=== PATIENT | female | born 1995 | race Two or more races ===

== ENCOUNTER → 2022-01-18 | Emergency (ER) | payer MEDICAID, OTHER ==
[~2022-01-18] VITALS: Ht 170.2 cm; Wt 90.7 kg
[2022-01-18 11:23] LABS: Basophils # (auto) 0.1 10 ^3/uL (0-0.2); Basophils % (auto) 0.8 % (0.0-2.0); Eosinophils # (auto) 0.3 10 ^3/uL (0-0.8); Eosinophils % (auto) 2.5 % (0.0-7.0); Hemoglobin 13.9 g/dL (12.2-16.2); Lymphocytes # (auto) 2.4 10 ^3/uL (0.4-5.4); Lymphocytes % (auto) 22.6 % (10.0-50.0); Mean Corpuscular Hemoglobin 29.6 pg (28.0-32.0); Mean Corpuscular Hgb Conc. 33.1 g/dL (32.0-36.0); Mean Corpuscular Volume 89.5 fL (80.0-100.0); Monocytes # (auto) 0.8 10 ^3/uL (0-1.3); Monocytes % (auto) 7.6 % (0.0-12.0); Neutrophils # (auto) 7.1 10 ^3/uL (1.6-8.6); Neutrophils % (auto) 66.5 % (37.0-80.0); Nucleated Red Blood Cells % 0.1 %; Red Blood Cells 4.69 10^6/uL (4.0-5.20); Red Cell Distribution Width 13.9 % (11.8-14.3); White Blood Cell 10.7 10^3/uL (4.4-10.8)
[2022-01-18 12:15] LABS: Urine Bacteria NONE SEEN /hpf (None Seen); Urine Blood 3+ /uL (Negative); Urine Budding Yeast OCCASIONAL /hpf (None Seen); Urine Mucus FEW (None Seen); Urine Specific Gravity 1.021 (1.001-1.035); Urine WBC 5 /hpf (0 - 5)
[2022-01-18 14:25] VITALS: BP 120/81
== END | disposition home or self-care (01) ==
LOC: ER 10:30
DX: O20.0 Threatened abortion (principal); Z86.2 Personal history of diseases of the blood and blood-forming organs and certain disorders involving the immune mechanism; Z91.040 Latex allergy status; Z3A.01 Less than 8 weeks gestation of pregnancy
CPT/HCPCS: 36415; 76801; 76817; 81001; 84702; 85025

== ENCOUNTER 2022-07-06 18:22 | Emergency (ER) | payer MEDICAID ==
[~2022-07-06] VITALS: Ht 167.6 cm; Wt 87.7 kg
[2022-07-06 19:52] VITALS: BP 128/74
== END 2022-07-06 19:56 | disposition home or self-care (01) ==
LOC: ER 18:22
DX: O20.0 Threatened abortion (principal); Z86.2 Personal history of diseases of the blood and blood-forming organs and certain disorders involving the immune mechanism; Z91.040 Latex allergy status; Z3A.11 11 weeks gestation of pregnancy

== ENCOUNTER 2022-07-29 12:32 | Emergency (ER) | payer MEDICAID ==
[~2022-07-29] VITALS: Ht 165.1 cm; Wt 89.1 kg
[2022-07-29 13:47] LABS: Basophils # (auto) 0.1 10 ^3/uL (0-0.2); Basophils % (auto) 0.5 % (0.0-2.0); Eosinophils # (auto) 0.1 10 ^3/uL (0-0.8); Eosinophils % (auto) 1.3 % (0.0-7.0); Hematocrit 40.1 % (36.0-46.0); Hemoglobin 13.6 g/dL (12.2-16.2); Lymphocytes # (auto) 1.7 10 ^3/uL (0.4-5.4); Lymphocytes % (auto) 16.2 % (10.0-50.0); Mean Corpuscular Hemoglobin 29.9 pg (28.0-32.0); Mean Corpuscular Hgb Conc. 33.9 g/dL (32.0-36.0); Mean Corpuscular Volume 88.3 fL (80.0-100.0); Monocytes # (auto) 0.5 10 ^3/uL (0-1.3); Monocytes % (auto) 4.6 % (0.0-12.0); Neutrophils # (auto) 8.3 10 ^3/uL (1.6-8.6); Neutrophils % (auto) 77.4 % (37.0-80.0); Red Blood Cells 4.54 10^6/uL (4.0-5.20); Red Cell Distribution Width 14.4 % (11.8-14.3); White Blood Cell 10.7 10^3/uL (4.4-10.8)
[2022-07-29 14:07] LABS: Albumin 3.6 g/dL (3.4-5.0); Calcium 9.3 mg/dL (8.5-10.1); Potassium 3.7 mmol/L (3.5-5.1)
[2022-07-29 14:12] LABS: BUN/Creatinine Ratio 12.3; Bilirubin, Total 0.4 mg/dL (0.2-1.0); Total Protein 7.6 g/dL (6.4-8.2)
[2022-07-29 16:04] LABS: Urine Blood 2+ /uL (Negative); Urine Specific Gravity 1.022 (1.001-1.035)
[2022-07-29 17:38] VITALS: BP 138/82
== END 2022-07-29 17:40 | disposition home or self-care (01) ==
LOC: ER 12:32
DX: O20.0 Threatened abortion (principal); Z3A.15 15 weeks gestation of pregnancy
CPT/HCPCS: 36415; 76805; 80053; 81003; 81015; 84702; 85025; 86850; 86900; 86901

== ENCOUNTER 2022-08-06 06:06 | Emergency (ER) | payer MEDICAID, OTHER ==
[~2022-08-06] VITALS: Ht 180.3 cm; Wt 160.0 kg
[2022-08-06 07:23] LABS: Urine Bacteria None Seen /hpf (None Seen); Urine WBC None Seen /hpf (0 - 5)
[2022-08-06 08:27] LABS: Basophils # (auto) 0.1 10 ^3/uL (0-0.2); Basophils % (auto) 0.5 % (0.0-2.0); Eosinophils # (auto) 0.1 10 ^3/uL (0-0.8); Eosinophils % (auto) 0.6 % (0.0-7.0); Hematocrit 41.3 % (36.0-46.0); Hemoglobin 13.9 g/dL (12.2-16.2); Lymphocytes # (auto) 1.3 10 ^3/uL (0.4-5.4); Lymphocytes % (auto) 10.2 % (10.0-50.0); Mean Corpuscular Hemoglobin 29.9 pg (28.0-32.0); Mean Corpuscular Hgb Conc. 33.7 g/dL (32.0-36.0); Mean Corpuscular Volume 88.9 fL (80.0-100.0); Monocytes # (auto) 0.5 10 ^3/uL (0-1.3); Neutrophils # (auto) 10.8 10 ^3/uL (1.6-8.6); Neutrophils % (auto) 84.7 % (37.0-80.0); Red Blood Cells 4.64 10^6/uL (4.0-5.20); Red Cell Distribution Width 14.5 % (11.8-14.3); White Blood Cell 12.8 10^3/uL (4.4-10.8)
[2022-08-06 08:41] LABS: Albumin 3.6 g/dL (3.4-5.0); Calcium 9.8 mg/dL (8.5-10.1); Potassium 4.4 mmol/L (3.5-5.1)
[2022-08-06 08:45] LABS: BUN/Creatinine Ratio 9.7; Bilirubin, Total 0.4 mg/dL (0.2-1.0); INR 0.92 (0.9-1.15); Partial Thromboplastin Time 29.3 sec (24.6-33.4); Total Protein 7.5 g/dL (6.4-8.2)
[2022-08-06 09:47] LABS: Urine Specific Gravity 1.022 (1.001-1.035)
[2022-08-06 09:48] LABS: Urine Blood Negative /uL (Negative)
[2022-08-06] MEDS ORDERED: CEFP200T15 PO (11:27)
[2022-08-06] MEDS ORDERED: ACETAMINOPHEN 325 MG TAB PO ONE (11:30)
[2022-08-06 12:11] VITALS: BP 101/63
== END 2022-08-06 12:12 | disposition home or self-care (01) ==
LOC: ER 06:06
DX: O23.42 Unspecified infection of urinary tract in pregnancy, second trimester (principal); N39.0 Urinary tract infection, site not specified; O41.1220 Chorioamnionitis, second trimester, not applicable or unspecified; Z3A.16 16 weeks gestation of pregnancy; Z91.040 Latex allergy status; Z98.890 Other specified postprocedural states
CPT/HCPCS: 36415; 76700; 76805; 80053; 81001; 84702; 85025; 85610; 85730; 86850; 86900; 86901

== ENCOUNTER 2022-11-20 10:58 | Observation (INO) | payer MEDICAID, OTHER ==
[~2022-11-20] VITALS: Ht 167.6 cm; Wt 100.2 kg
[~2022-11-20 10:58] MED LIST: CEFP200T15 PO
[2022-11-20] MEDS ORDERED: NIF10C PO (12:05)
[2022-11-20] MEDS ORDERED: BETAMETHASONE ACET (30mg/5ml) 5ml Vial 6mg/ml IM ONE (12:30)
[2022-11-21] MEDS ORDERED: PREN-96 PO ×2 (13:28)
== END 2022-11-20 13:02 | disposition home or self-care (01) ==
LOC: LDRP 10:58 → UNDOADMOB 10:58 → LDRP 11:24
PROVIDERS: ADMIT Obstetrics & Gynecology; ATTEND Obstetrics & Gynecology
DX: O60.03 Preterm labor without delivery, third trimester (principal); O13.3 Gestational [pregnancy-induced] hypertension without significant proteinuria, third trimester; Z3A.31 31 weeks gestation of pregnancy; Z91.040 Latex allergy status
CPT/HCPCS: 59025; 81002; 94760; 96372; G0378; J0702

== ENCOUNTER 2022-11-21 08:56 | Observation (INO) | payer MEDICAID ==
[~2022-11-21 08:56] MED LIST changes: +NIF10C PO
[2022-11-21] MEDS ORDERED: BETAMETHASONE ACET (30mg/5ml) 5ml Vial 6mg/ml IM ONE (13:15)
[2022-11-21] MEDS ORDERED: PREN-96 PO ×2 (13:28)
== END 2022-11-21 13:55 | disposition home or self-care (01) ==
LOC: LDRP 13:02 → UNDOADMOB 13:02 → LDRP 13:03
PROVIDERS: ADMIT Obstetrics & Gynecology; ATTEND Obstetrics & Gynecology
DX: O26.873 Cervical shortening, third trimester (principal); O60.03 Preterm labor without delivery, third trimester; O13.3 Gestational [pregnancy-induced] hypertension without significant proteinuria, third trimester; Z3A.31 31 weeks gestation of pregnancy; Z91.040 Latex allergy status
CPT/HCPCS: 59025; 81002; 94760; 96372; G0378

== ENCOUNTER 2022-11-27 09:35 | Observation (INO) | payer MEDICAID ==
[~2022-11-27 09:35] MED LIST changes: -NIF10C PO; +PREN-96 PO
== END 2022-11-28 09:44 | disposition home or self-care (01) ==
LOC: UNDOADMOB 11-28 08:15 → LDRP 11-28 08:15 → UNDODISOB 11-28 09:44
PROVIDERS: ADMIT Obstetrics & Gynecology; ATTEND Obstetrics & Gynecology
DX: O60.03 Preterm labor without delivery, third trimester (principal); O26.873 Cervical shortening, third trimester; Z3A.32 32 weeks gestation of pregnancy; Z91.040 Latex allergy status
CPT/HCPCS: 59025; 76818; 81002; 94760; G0378

== ENCOUNTER 2022-12-04 10:19 | Observation (INO) | payer MEDICAID ==
[2022-12-04] MEDS ORDERED: PROG1CAP2 VG (12:22)
[2022-12-04] MEDS ORDERED: PREN-96 PO (12:22)
== END 2022-12-04 12:35 | disposition home or self-care (01) ==
LOC: UNDOADMOB 10:19 → LDRP 10:19
PROVIDERS: ADMIT Obstetrics & Gynecology; ATTEND Obstetrics & Gynecology
DX: O26.873 Cervical shortening, third trimester (principal); O60.03 Preterm labor without delivery, third trimester; Z3A.33 33 weeks gestation of pregnancy
CPT/HCPCS: 59025; 76818; 81002; 94760; G0378

== ENCOUNTER 2022-12-12 09:08 | Observation (INO) | payer MEDICAID ==
[~2022-12-12 09:08] MED LIST changes: -CEFP200T15 PO; +PROG1CAP2 VG
== END 2022-12-12 10:35 | disposition home or self-care (01) ==
LOC: UNDOADMOB 09:08 → LDRP 09:08 → UNDODISOB 10:35
PROVIDERS: ADMIT Obstetrics & Gynecology; ATTEND Obstetrics & Gynecology
DX: O60.03 Preterm labor without delivery, third trimester (principal); O26.873 Cervical shortening, third trimester; Z3A.34 34 weeks gestation of pregnancy; Z91.040 Latex allergy status
CPT/HCPCS: 59025; 81002; 94760; G0378

== ENCOUNTER 2022-12-19 07:56 | Observation (INO) | payer MEDICAID | END 2022-12-19 09:56 | disposition home or self-care (01) | LOC: UNDOADMOB 09:01 → LDRP 09:01 | PROVIDERS: ADMIT Obstetrics & Gynecology; ATTEND Obstetrics & Gynecology | DX: O60.03 Preterm labor without delivery, third trimester (principal); O26.873 Cervical shortening, third trimester; Z3A.35 35 weeks gestation of pregnancy | CPT/HCPCS: 59025; 81002; G0378 ==

== ENCOUNTER → 2022-12-24 | Outpatient (CLI) | payer MEDICAID ==
[2022-12-24 10:18] LABS: Basophils # (auto) 0.1 10 ^3/uL (0-0.2); Basophils % (auto) 0.6 % (0.0-2.0); Eosinophils # (auto) 0.2 10 ^3/uL (0-0.8); Eosinophils % (auto) 1.2 % (0.0-7.0); Hematocrit 35.4 % (36.0-46.0); Hemoglobin 11.7 g/dL (12.2-16.2); Mean Corpuscular Hemoglobin 28.4 pg (28.0-32.0); Mean Corpuscular Hgb Conc. 32.9 g/dL (32.0-36.0); Mean Corpuscular Volume 86.2 fL (80.0-100.0); Monocytes # (auto) 0.9 10 ^3/uL (0-1.3); Monocytes % (auto) 6.9 % (0.0-12.0); Neutrophils # (auto) 10.3 10 ^3/uL (1.6-8.6); Neutrophils % (auto) 76.3 % (37.0-80.0); Nucleated Red Blood Cells % 0.2 %; Red Blood Cells 4.11 10^6/uL (4.0-5.20); Red Cell Distribution Width 14.7 % (11.8-14.3); White Blood Cell 13.5 10^3/uL (4.4-10.8)
[2022-12-25 07:06] LABS: RPR Non Reactive (Non Reactive)
== END | disposition home or self-care (01) ==
LOC: LAB 09:44
PROVIDERS: ATTEND Obstetrics & Gynecology
DX: Z34.80 Encounter for supervision of other normal pregnancy, unspecified trimester (principal); Z3A.00 Weeks of gestation of pregnancy not specified
CPT/HCPCS: 36415; 84112; 85025; 86592

== ENCOUNTER 2023-01-05 22:38 | Inpatient (IN) | payer MEDICAID ==
[~2023-01-05] VITALS: Ht 167.6 cm; Wt 105.2 kg
[2023-01-06] MEDS ORDERED: miSOPROStol 100 mcg TAB SL PRN
[2023-01-06] MEDS ORDERED: CARBOPROST TROMETHAMINE 250 MCG/1ML VIAL IM PRN
[2023-01-06] MEDS ORDERED: BUTORPHANOL TARTRATE 2 MG/1 ML VIAL IV PRN ×2
[2023-01-06] MEDS ORDERED: LIDOCAINE 2%HCL (LOCAL ANESTH.) INJ 20ML MDV IJ PRN
[2023-01-06] MEDS ORDERED: METHYLERGONOVINE MALEATE 0.2 MG/ML AMP IM PRN
[2023-01-06] MEDS ORDERED: PROMETHAZINE HCL 25 MG/ML 1ML IV PRN
[2023-01-06] MEDS ORDERED: LACT. RINGERS/OXYTOCIN 20UNITS 500 ML IV ONE ×2 (00:30)
[2023-01-06 00:44] LABS: Basophils # (auto) 0.1 10 ^3/uL (0-0.2); Basophils % (auto) 0.6 % (0.0-2.0); Eosinophils # (auto) 0.1 10 ^3/uL (0-0.8); Eosinophils % (auto) 0.5 % (0.0-7.0); Hemoglobin 11.2 g/dL (12.2-16.2); Lymphocytes # (auto) 2.6 10 ^3/uL (0.4-5.4); Mean Corpuscular Hemoglobin 27.2 pg (28.0-32.0); Mean Corpuscular Volume 85.2 fL (80.0-100.0); Monocytes # (auto) 0.9 10 ^3/uL (0-1.3); Monocytes % (auto) 5.1 % (0.0-12.0); Neutrophils # (auto) 14.8 10 ^3/uL (1.6-8.6); Neutrophils % (auto) 79.8 % (37.0-80.0); Red Blood Cells 4.11 10^6/uL (4.0-5.20); White Blood Cell 18.5 10^3/uL (4.4-10.8)
[2023-01-06 01:00] LABS: INR 0.91 (0.9-1.15); Partial Thromboplastin Time 28.8 sec (24.6-33.4)
[2023-01-06 01:01] LABS: Albumin 2.6 g/dL (3.4-5.0); BUN/Creatinine Ratio 13.7 (10.0-20.0); Potassium 3.5 mmol/L (3.5-5.1)
[2023-01-06 01:01] LABS: Urine Bacteria NONE SEEN /hpf (None Seen); Urine Blood 1+ /uL (Negative); Urine Mucus FEW (None Seen); Urine Specific Gravity 1.015 (1.001-1.035); Urine WBC 10 /hpf (0 - 5)
[2023-01-06 01:04] LABS: Bilirubin, Total 0.4 mg/dL (0.2-1.0); Total Protein 6.9 g/dL (6.4-8.2)
[2023-01-06 01:05] LABS: Alcohol, Urine < 3.0 mg/dL (0-10); Amphetamine Screen, Urine NEGATIVE (NEGATIVE); Barbiturate Scree,Urine NEGATIVE (NEGATIVE); Benzodiazephine Screen, Urine NEGATIVE (NEGATIVE); Cannabinoid Screen, Urine NEGATIVE (NEGATIVE); Cocaine Screen, Urine NEGATIVE (NEGATIVE); Opiate Scree,Urine NEGATIVE (NEGATIVE); Phencyclidine Screen, Urine NEGATIVE (NEGATIVE)
[2023-01-06] MEDS ORDERED: ROPIVACAINE HCL 200 ML EPI SCH ×2 (01:30→02:30)
[2023-01-06] MEDS ORDERED: fentaNYL CITRATE 100 MCG/2 ML VL IV ONE (01:30)
[2023-01-06] MEDS ORDERED: LACTATED RINGER'S 500 ML IV ONE (01:30)
[2023-01-06] MEDS ORDERED: ePHEDrine SULFATE 50 MG/ML AMP IV ONE (01:30)
[2023-01-06] MEDS ORDERED: NALOXONE HCL 0.4 MG/ML VIAL IV ONE (01:30)
[2023-01-06] MEDS: LACTATED RINGER'S 1,000 ML IV SCH ×2 (02:37→03:17)
[2023-01-06] MEDS ORDERED: ONDANSETRON ODT 4 MG TAB PO PRN (08:15)
[2023-01-06] MEDS ORDERED: ACETAMINOPHEN 325 MG TAB PO PRN (08:15)
[2023-01-06] MEDS ORDERED: LACTATED RINGER'S 1,000 ML IV ONE (09:15)
[2023-01-06 09:46] LABS: Basophils # (auto) 0.1 10 ^3/uL (0-0.2); Basophils % (auto) 0.3 % (0.0-2.0); Eosinophils # (auto) 0 10 ^3/uL (0-0.8); Eosinophils % (auto) 0.1 % (0.0-7.0); Hematocrit 29.5 % (36.0-46.0); Hemoglobin 9.5 g/dL (12.2-16.2); Lymphocytes # (auto) 1.4 10 ^3/uL (0.4-5.4); Mean Corpuscular Hgb Conc. 32.4 g/dL (32.0-36.0); Mean Corpuscular Volume 86.4 fL (80.0-100.0); Monocytes # (auto) 1.1 10 ^3/uL (0-1.3); Monocytes % (auto) 4.7 % (0.0-12.0); Neutrophils # (auto) 20.8 10 ^3/uL (1.6-8.6); Neutrophils % (auto) 88.9 % (37.0-80.0); Nucleated Red Blood Cells % 0.1 %; Red Blood Cells 3.41 10^6/uL (4.0-5.20); Red Cell Distribution Width 15.2 % (11.8-14.3); White Blood Cell 23.4 10^3/uL (4.4-10.8)
[2023-01-06] MEDS: CLINDAMYCIN HCL 150 MG CAP PO SCH ×2 (11:23→19:03)
[2023-01-06 14:47] VITALS: BP 100/61
[2023-01-06] MEDS: DERMOPLAST 60ML BOTTLE TOP PRN (17:30)
[2023-01-06] MEDS: PHISODERM TOP SOLN 240ML BTL TOP PRN (17:30)
[2023-01-06] MEDS: WITCH HAZEL-GLYCERIN PAD TOP PRN (17:30)
[2023-01-06] MEDS: IBUPROFEN 600 MG TAB PO PRN (18:23)
[2023-01-06 19:00] VITALS: BP 117/62
[2023-01-06 23:00] VITALS: BP 92/54
[2023-01-07] MEDS: CLINDAMYCIN HCL 150 MG CAP PO SCH ×2 (02:58→10:46)
[2023-01-07 03:00] VITALS: BP 99/56
[2023-01-07 07:01] VITALS: BP 109/56
[2023-01-07] MEDS ORDERED: DOCU-94 PO ×3 (07:39→07:42)
[2023-01-07] MEDS ORDERED: IBU600T PO (07:39)
[2023-01-07] MEDS ORDERED: ACET325T10 PO (07:39)
[2023-01-07] MEDS ORDERED: PREN-96 PO (07:39)
[2023-01-07] MEDS ORDERED: FERRCAP9 PO (07:42)
[2023-01-07 08:07] LABS: RPR Non Reactive (Non Reactive)
[2023-01-07] MEDS: IBUPROFEN 600 MG TAB PO PRN (08:30)
[2023-01-07] MEDS: DERMOPLAST 60ML BOTTLE TOP PRN (13:27)
[2023-01-07] MEDS: PHISODERM TOP SOLN 240ML BTL TOP PRN (13:27)
[2023-01-07] MEDS: WITCH HAZEL-GLYCERIN PAD TOP PRN (13:27)
[2023-01-07 14:28] VITALS: BP 122/63
== END 2023-01-07 14:35 | disposition home or self-care (01) | DRG 560 ==
LOC: LDRP 22:38
PROVIDERS: ADMIT Obstetrics & Gynecology; ATTEND Obstetrics & Gynecology
PROC: 3E0R3BZ Introduction of Anesthetic Agent into Spinal Canal, Percutaneous Approach (ICD-10-PCS; principal; 2023-01-06)
PROC: 10D07Z6 Extraction of Products of Conception, Vacuum, Via Natural or Artificial Opening (ICD-10-PCS; 2023-01-06)
PROC: 00HU33Z Insertion of Infusion Device into Spinal Canal, Percutaneous Approach (ICD-10-PCS; 2023-01-06)
PROC: 0HQ9XZZ Repair Perineum Skin, External Approach (ICD-10-PCS; 2023-01-06)
DX: O75.81 Maternal exhaustion complicating labor and delivery (principal); Z37.0 Single live birth; I10 Essential (primary) hypertension; O70.0 First degree perineal laceration during delivery; Z3A.38 38 weeks gestation of pregnancy; Z91.040 Latex allergy status
CPT/HCPCS: 36415; 59025; 59409; 62282; 80053; 80307; 81001; 81002; 85025; 85610; 85730; 86592; 86850; 86900; 86901; 94760; 94762; 96361; 96365; G0378; J2590

== ENCOUNTER 2024-11-17 09:44 | Observation (INO) | payer MEDICAID ==
[~2024-11-17] VITALS: Ht 165.1 cm; Wt 104.3 kg
[~2024-11-17 09:44] MED LIST changes: +ACET-1882 PO; +DOCU-94 PO; +FERRCAP9 PO; +IBU600T PO; -PROG1CAP2 VG
[2024-11-17] MEDS: BETAMETHASONE ACET (30mg/5ml) 5ml Vial 6mg/ml IM ONE (10:20)
[2024-11-17] MEDS ORDERED: PROG200C21 PO (10:31)
[2024-11-17] MEDS ORDERED: NIFE10CA52 PO (10:32)
== END 2024-11-17 10:41 | disposition home or self-care (01) ==
LOC: LDRP 09:44
PROVIDERS: ADMIT Obstetrics & Gynecology; ATTEND Obstetrics & Gynecology
DX: O26.873 Cervical shortening, third trimester (principal); Z3A.32 32 weeks gestation of pregnancy; Z91.040 Latex allergy status; Z79.899 Other long term (current) drug therapy
CPT/HCPCS: 81002; 94760; 96372; G0378; J0702

== ENCOUNTER 2024-11-18 11:00 | Observation (INO) | payer MEDICAID ==
[~2024-11-18] VITALS: Ht 170.2 cm; Wt 82.6 kg
[~2024-11-18 11:00] MED LIST changes: +NIFE10CA52 PO; +PROG200C21 PO
[2024-11-18] MEDS: BETAMETHASONE ACET (30mg/5ml) 5ml Vial 6mg/ml IM ONE (11:49)
--- NOTE | 2024-11-23 14:32 | DVHDS2 ---
Physician Discharge Progress N Final Diagnosis: ptl,short cx 32 wks Operations or Procedures: Operations or Procedures nst,sono Condition on Discharge: Good Disposition: Home Discharge Instructions: Diet: Regular Activity: Light activity Medications: na Follow Up Care: Specialist: 1w Discharge Statement: "Patient was advised to return to the ER or call 911 if any headaches, dizziness, shortness of breath, chest pain, abdominal pain, bleeding, fevers, or worsening of medical condition. Patient was counseled about treatment plan, medications, possible side effects, patientverbalized understanding. All questions were answered to the best of my ability. This discharge took greater then 30 minutes in planning, reviewing documentation, counseling the patient, and discussing with other team members." Visit Coding OBGYN Date of Service: Nov 18, 2024 Billing Provider: MAN PEREZ DO STONE MILL OPERATOR Common Visit Codes: 70280-[id number] OBS CARE (HIGH) STONE MILL OPERATOR Procedure Codes: 11657-34- NON-STRESS TEST MAN PEREZ DO Nov 23, 2024 14:32
== END 2024-11-18 12:04 | disposition home or self-care (01) ==
LOC: LDRP 11:00
PROVIDERS: ADMIT Obstetrics & Gynecology; ATTEND Obstetrics & Gynecology
DX: O60.03 Preterm labor without delivery, third trimester (principal); Z3A.32 32 weeks gestation of pregnancy; Z79.899 Other long term (current) drug therapy
CPT/HCPCS: 81002; 94760; G0378; 59025

== ENCOUNTER 2024-11-24 10:15 | Observation (INO) | payer MEDICAID ==
--- NOTE | 2024-11-24 11:39 | DVH ---
BIOPHYSICAL PROFILE HISTORY: Short Cervix Comparison Study: 12/04/2022 TECHNIQUE: Multiple real-time grayscale sonographic images through the gravid uterus of the fetus wi th duplex Doppler color flow and M-mode spectral analysis FINDINGS: BIOPHYSICAL PROFILE: breathing score: 2 movement score: 2 tone score: 2 Quantitative MICA score: 2 (MICA: 15.1 Cm.) Total score: 8 The cervix is closed and measures 2.3 cm. Single live fetus in cephalic presentation. heart rate 143 beats per minute. Grade 2, anterior placenta without previa or abruption IMPRESSION: Biophysical profile score: 8/8 Cervix measures 2.3 cm, closed (translabial).
--- NOTE | 2024-11-24 12:28 | DVHDS2 ---
Physician Discharge Progress N Final Diagnosis: ptl 33wks Operations or Procedures: Operations or Procedures nst,sono Condition on Discharge: Good Disposition: Home Discharge Instructions: Diet: Regular Activity: Light activity Medications: na Follow Up Care: Specialist: 1w Discharge Statement: "Patient was advised to return to the ER or call 911 if any headaches, dizziness , shortness of breath, chest pain, abdominal pain, bleeding, fevers, or worsening of medical condition. Patient was counseled about treatment plan, medications, possible side effects, patientverbalized understanding. All questions were answered to the best of my ability. This discharge took greater then 30 minutes in planning, reviewing documentation, counseling the patient, and discussing with other team members." Visit Coding OBGYN Date of Service: Nov 24, 2024 Billing Provider: MAN PEREZ DO DEFENSIVE SECONDARY COACH Common Visit Codes: [id number] OBS CARE (HIGH) DEFENSIVE SECONDARY COACH Procedure Codes: 94562-16- NON-STRESS TEST MAN PEREZ DO Nov 24, 2024 12:28
== END 2024-11-24 12:24 | disposition home or self-care (01) ==
LOC: LDRP 10:15 → UNDOADMOB 10:15 → LDRP 10:23 → UNDODISOB 12:24
PROVIDERS: ADMIT Obstetrics & Gynecology; ATTEND Obstetrics & Gynecology
DX: O60.03 Preterm labor without delivery, third trimester (principal); O26.873 Cervical shortening, third trimester; Z79.899 Other long term (current) drug therapy; Z3A.33 33 weeks gestation of pregnancy
CPT/HCPCS: 59025; 76819; 81002; 94760; G0378

== ENCOUNTER 2024-12-01 10:07 | Observation (INO) | payer MEDICAID ==
[~2024-12-01] VITALS: Ht 165.1 cm; Wt 102.1 kg
--- NOTE | 2024-12-01 12:16 | DVH ---
BIOPHYSICAL PROFILE HISTORY: Short cervix TECHNIQUE: Multiple transabdominal real-time grayscale sonographic images through the gravid uterus of the fetus with duplex Doppler color flow and M-mode spectral analysis FINDINGS: BIOPHYSICAL PROFILE: breathing score: 2 movement score: 2 tone score: 2 Quantitative MICA score: 2 (MICA: 9 Cm.) Total score: 8 The cervix is close and short measuring 2.5cm Single live fetus in cephalic presentation. heart rate 150 beats per minute. Grade II atnerior placenta without previa or abruption IMPRESSION: Biophysical profile score: 8/8 The cervix is close and short measuring 2.5cm
--- NOTE | 2024-12-01 14:04 | DVHDS2 ---
Physician Discharge Progress N Final Diagnosis: ptl,short cx Operations or Procedures: Operations or Procedures nst,sono Condition on Discharge: Good Disposition: Home Discharge Instructions: Diet: Regular Activity: Light activity Medications: na Follow Up Care: Specialist: 1w Discharge Statement: "Patient was advised to return to the ER or call 911 if any headaches, dizzin ess, shortness of breath, chest pain, abdominal pain, bleeding, fevers, or worsening of medical condition. Patient was counseled about treatment plan, medications, possible side effects, patientverbalized understanding. All questions were answered to the best of my ability. This discharge took greater then 30 minutes in planning, reviewing documentation, counseling the patient, and discussing with other team members." Visit Coding OBGYN Date of Service: Dec 01, 2024 Billing Provider: MAN PEREZ DO PNEUMATIC DRUM SANDER Common Visit Codes: [id number] INP/OBS CARE (HIGH) PNEUMATIC DRUM SANDER Procedure Codes: 25464-21- NON-STRESS TEST MAN PEREZ DO Dec 01, 2024 14:04
--- NOTE | 2024-12-01 15:56 | DVH ---
BIOPHYSICAL PROFILE HISTORY: Short cervix TECHNIQUE: Multiple transabdominal real-time grayscale sonographic images through the gravid uterus of the fetus with duplex Doppler color flow and M-mode spectral analysis FINDINGS: BIOPHYSICAL PROFILE: breathing score: 2 movement score: 2 tone score: 2 Quantitative MICA score: 2 (MICA: 9 Cm.) Total score: 8 The cervix is close and short measuring 2.5cm Single live fetus in cephalic presentation. heart rate 150 beats per minute. Grade II atnerior placenta without previa or abruption IMPRESSION: Biophysical profile score: 8/8 The cervix is close and short measuring 2.5cm ARDA VEGA
== END 2024-12-01 12:30 | disposition home or self-care (01) ==
LOC: UNDOADMOB 10:07 → LDRP 10:07 → UNDODISOB 12:30
PROVIDERS: ADMIT Obstetrics & Gynecology; ATTEND Obstetrics & Gynecology
DX: O60.03 Preterm labor without delivery, third trimester (principal); O26.873 Cervical shortening, third trimester; Z3A.34 34 weeks gestation of pregnancy; Z91.040 Latex allergy status
CPT/HCPCS: 59025; 76817; 76819; 81002; 94760; G0378

== ENCOUNTER 2024-12-05 19:50 | Observation (INO) | payer MEDICAID ==
[~2024-12-05] VITALS: Ht 165.1 cm; Wt 106.1 kg
[2024-12-05] MEDS: MAGNESIUM SULFATE 40MG/ML 1,000 ML IV SCH (20:45)
[2024-12-05] MEDS: MAGNESIUM SULFATE 100 ML IV ONE (21:05)
[2024-12-05] MEDS: LACTATED RINGER'S 1,000 ML IV SCH (21:05)
--- NOTE | 2024-12-05 21:06 | DVH ---
OB ULTRASOUND COMPLETE: HISTORY: ABD PAIN TECHNIQUE: Multiple real-time grayscale images of the gravid uterus with duplex Doppler color flow an d M-mode spectral analysis. FINDINGS: IUP single live fetus at 35 week 1 day average ultrasound age (AUA) based on composite averages of th e BPD, head circumference, abdominal circumference and femur length Age based on (early ultrasound) : Not available MEASUREMENTS: BPD: 8.8 cm GA: Peak w 3 d HC: 31.79 cm GA: 35 w 5 d AC: 31.18 cm GA: 35 w 1 d FL : 6.7 cm GA: 34 w 3 d HL: HC/AC Ratio: 1.0 Range: 0.93-1.11 Estimated weight 01/04/2079 grams; 5 lbs 11 oz, 59.6 percentile. heart rate 157 beats per minute MICA 11.58 cm, MVP 4.42 cm EFW only Cephalic Presentation Anterior Grade 2 Placenta without previa or abruption Cervix not visualized IMPRESSION: 1. IUP single live fetus at 35 weeks 1 day AUA corresponding to an BRENT of 01/08/2025. 2. No abnormality detected.
--- NOTE | 2024-12-05 21:13 | DVHHP ---
CHIEF COMPLAINT: Uterine contractions. HISTORY OF PRESENT ILLNESS: The patient is a 29-year-old 2, para 1 with EDC 01/12/2025, estimated gestational age of 34+ weeks, admitted for labor. The patient reports having contractions. She received Celestone few weeks ago. Baby's head is down, vertex. No bleeding. PAST MEDICAL HISTORY: None. PAST SURGICAL HISTORY: None. SOCIAL HISTORY: None. FAMILY HISTORY: None. OBSTETRIC AND GYNECOLOGIC HISTORY: One vaginal delivery and one miscarriage. REVIEW OF SYSTEMS: Consistent with HPI. PHYSICAL EXAMINATION: VITAL SIGNS: Stable, afebrile. HEENT: Within normal limits. HEENT: Within normal limits. CARDIOVASCULAR: Regular rate and rhythm. LUNGS: Clear to auscultation. BREASTS: Symmetrical. No masses. ABDOMEN: Gravid. Positive heart. PELVIC: Cervix closed, -1, 50%. EXTREMITIES: No clubbing, cyanosis or edema. IMPRESSION: Intrauterine at 34+ weeks with labor. PLAN: Stabilize and transfer to [facility]. Spoke to Dr. Rea. He will arrange for accepting physician and transfer to [facility]. DO PADMINI Jeong TID: [id number] RECEIPT: [id number]
[2024-12-05] MEDS ORDERED: TERBUTALINE SULFATE 1 MG/ML 1ML VIAL SC ONE (22:00)
[2024-12-05] MEDS: TERBUTALINE SULFATE 1 MG/ML 1ML VIAL SC SCH (22:12)
--- NOTE | 2024-12-06 11:55 | DVHTS ---
Transfer Summary Transfer Summary Date of Admission Dec 05, 2024 at 19:50 Date of Transfer: Dec 05, 2024 Transfer Diagnosis ptl Brief Hx & Hospital Course: pt is admitted for ptl started on mg Transfer to: [facility] dr grant will manage Discharge Instructions: air Transfer Status stable Visit Coding OBGYN Date of Service: Dec 05, 2024 Billing Provider: MAN PEREZ DO SOLAR PROCESS ENGINEER Common Visit Codes: [id number] INP/OBS CARE(HIGH) SOLAR PROCESS ENGINEER Procedure Codes: 91746-11- NON-STRESS TEST MAN PEREZ DO Dec 06, 2024 11:55
--- NOTE | 2024-12-06 11:57 | DVHDS2 ---
Physician Discharge Progress N Final Diagnosis: ptl 34 wks Operations or Procedures: Operations or Procedures nst,sono Condition on Discharge: Higher Level of Care Disposition: Acute Care Facility Discharge Instructions: Diet: See Comment Activity: Bed rest Medications: mg Follow Up Care: Specialist: to [facility] Discharge Statement: "Patient was advised to return to the ER or call 911 if any headaches, dizziness, shortness of breath, chest pain, abdominal pain, bleeding, fevers, or worsening of medical condition. Patient was counseled about treatment plan, medications, possible side effects, patientverbalized understanding. All questions were answered to the best of my ability. This discharge took greater then 30 minutes in planning, reviewing document ation, counseling the patient, and discussing with other team members." Visit Coding OBGYN Date of Service: Dec 05, 2024 Billing Provider: MAN PEREZ DO BOBBIN PAINTER Common Visit Codes: [id number] INP/OBS CARE(HIGH), 01892-LZK/OBS DISCH DAY >30MIN BOBBIN PAINTER Procedure Codes: 37221-01- NON-STRESS TEST MAN PEREZ DO Dec 06, 2024 11:56
== END 2024-12-05 22:40 ==
LOC: LDRP 19:50
PROVIDERS: ADMIT Obstetrics & Gynecology; ATTEND Obstetrics & Gynecology
DX: O60.03 Preterm labor without delivery, third trimester (principal); Z3A.34 34 weeks gestation of pregnancy; Z79.899 Other long term (current) drug therapy; Z98.890 Other specified postprocedural states
CPT/HCPCS: 59025; 76805; 94760; 96361; 96365; 96366; 96372; G0378; J3105; J3475; 96360

== ENCOUNTER 2024-12-08 08:51 | Observation (INO) | payer MEDICAID ==
--- NOTE | 2024-12-08 10:25 | DVH ---
Procedure: US BIOPHYSICAL PROFILE 12/08/2024 09:09 AM Indication: short cervix- please check cervical length Comparison: US BIOPHYSICAL PROFILE on DOS: 12/01/24, US BIOPHYSICAL PROFILE on DOS: 11/24/24, US BIOPHYS ICAL PROFILE on DOS: 12/04/22 Technique: Sonogram of gravid uterus utilizing grayscale and color techniques. FINDINGS: Single living intrauterine gestation. Presentation: Cephalic Placenta: Anterior heart rate: 155 bpm MICA: 10.4 cm, DVP: 6.6 cm Maternal cervix: Closed but shortened measuring 2.5 cm in length in the transabdominal images Biophysical Profile: breathing score: 2 movement score: 2 tone: 2 Quantitative MICA score: 2 Total score: 8/8 IMPRESSION: 1. Single living as above. 2. Biophysical profile score: 8/8. 3. Closed by shortened cervix measuring 2.5 cm in length.
--- NOTE | 2024-12-09 17:28 | DVHDS2 ---
Physician Discharge Progress N Final Diagnosis: ptl 35wks Operations or Procedures: Operations or Procedures nst,sono Condition on Discharge: Good Disposition: Home Discharge Instructions: Diet: Regular Activity: Light activity Medications: na Follow Up Care: Specialist: 1w Discharge Statement: "Patient was advised to return to the ER or call 911 if any headaches, dizziness , shortness of breath, chest pain, abdominal pain, bleeding, fevers, or worsening of medical condition. Patient was counseled about treatment plan, medications, possible side effects, patientverbalized understanding. All questions were answered to the best of my ability. This discharge took greater then 30 minutes in planning, reviewing documentation, counseling the patient, and discussing with other team members." Visit Coding OBGYN Date of Service: Dec 08, 2024 Billing Provider: MAN PEREZ DO SHINGLE BOLT CUTTER Common Visit Codes: [id number] INP/OBS CARE (HIGH) SHINGLE BOLT CUTTER Procedure Codes: 30199-21- NON-STRESS TEST MAN PEREZ DO Dec 09, 2024 17:28
== END 2024-12-08 10:43 | disposition home or self-care (01) ==
LOC: UNDOADMOB 08:51 → LDRP 08:51 → UNDODISOB 10:43
PROVIDERS: ADMIT Obstetrics & Gynecology; ATTEND Obstetrics & Gynecology
DX: O26.873 Cervical shortening, third trimester (principal); O21.2 Late vomiting of pregnancy; Z3A.35 35 weeks gestation of pregnancy; Z79.899 Other long term (current) drug therapy
CPT/HCPCS: 59025; 76819; 81002; 94760; G0378

== ENCOUNTER 2024-12-11 08:51 | Observation (INO) | payer MEDICAID ==
--- NOTE | 2024-12-11 10:24 | DVHDS2 ---
Physician Discharge Progress N Final Diagnosis: 3rd trim preg with short cervix Secondary Diagnosis: encounter for surveillance Operations or Procedures: Operations or Procedures NST Commentary: Commentary NST categ 1, reactive No contractions Condition on Discharge: Stable Disposition: Home Discharge Instructions: Diet: Regular Activity: Light activity Activity comment: Pelvic rest x 1 week Follow Up/Referral: Dr Martinez in 1 wk, no more NST indicated Medications: Stop Procardia after 36 wk Follow Up Care: Discharge Statement: "Patient was advised to return to the ER or call 911 if any headaches, dizziness, shortness of breath, chest pain, abdominal pain, bleeding, fevers, or worsening of medical condition. Patient was counseled about treatment plan, medications, possible side effects, patientverbalized understanding. All questions were answered to the best of my ability. This discharge took greater then 30 minutes in planning, reviewing documentation, counseling the patient, and discussing with other team members." Visit Coding OBGYN Date of Service: Dec 11, 2024 Billing Provider: AMINTA SPANGLER DO CLINICAL DATA COORDINATOR Common Visit Codes: 54053-TQC/OBS SAME DATE (MOD) AMINTA SPANGLER DO Dec 11, 2024 10:24
== END 2024-12-11 10:10 | disposition home or self-care (01) ==
LOC: LDRP 08:51
PROVIDERS: ADMIT Obstetrics & Gynecology; ATTEND Obstetrics & Gynecology
DX: O26.873 Cervical shortening, third trimester (principal); Z98.890 Other specified postprocedural states; Z79.899 Other long term (current) drug therapy; Z3A.35 35 weeks gestation of pregnancy
CPT/HCPCS: 59025; 81002; 94760; G0378

== ENCOUNTER 2024-12-24 10:45 | Inpatient (IN) | payer MEDICAID ==
[~2024-12-24] VITALS: Ht 165.1 cm; Wt 102.1 kg
--- NOTE | 2024-12-24 10:58 | DVHHP2 ---
OB CC & HPI Date Date of Admission: December 24, 2024 Patient Identification: : 2 Para: 1 EDC: January 12, 2025 EGA: 37wks Chief Complaints: Reason for admission: active labor Admission Nurse Assessment Rev: No History of Present Complaints pt is admitted for active labor,no rom or vag bleeding Past Medical History Cardiac: No pertinent Hx Pulmonary: No pertinent Hx Central Nervous System: No pertinent Hx GI: No pertinent Hx Hemotology/Oncology: No pertinent Hx Hepatobiliary: No pertinent Hx Psychiatric: No pertinent Hx Musculoskeletal: No pertinent Hx Rheumotologic: No pertinent Hx Infectious Disease: No peritnent Hx ENT: No pertinent Hx Renal/: No pertinent Hx Endocrine: No pertinent Hx Dermatology: No pertinent Hx Past Surgical History: No pertinent Hx OB History OB History Care: Good Care Ultrasounds: Normal mid trimester US Obstetrical Complications: None Medical Complications: None Allergies: Coded Allergies: Latex (Verified Allergy, Unknown, 01/18/22) Home Meds Active Scripts Docusate Sodium (Colace) 100 Mg Cap, 1 CAP PO DAILY PRN, #30 CAP 2 Refills Prov[facility] 01/07/23 Ferrous Fumarate-Iron Polysacc (Integra F) Cap, 1 CAP PO DAILY, #30 CAP 2 Refills Prov:DAILYSamaraFLACAMERLINANGNATHANIEL [facility] 01/07/23 Ibuprofen Micronized (MOTRIN TABLET) 600 Mg Tb, 600 MG PO Q6HP PRN for 15 Days, #60 TAB Prov:BRIAM[facility]NATHANIEL [facility] 01/07/23 Acetaminophen (Acetaminophen) 325 Mg Tab, 650 MG PO Q6HPRN PRN for 10 Days, #80 TAB Prov:[facility] 01/07/23 Vit W/ Ferrous Fumara ( One Daily) Daily Tab, 1 TAB PO DAILY, #90 TAB 3 Refills Prov:[facility] 01/07/23 Reported Medications Nifedipine (PROCARDIA CAPSULE) 10 Mg Cp, 10 MG PO, CAP 4/2/25 Progesterone Micronized (PROGESTERONE) 200 Mg Cap, 200 MG PO, CAP /25 Family & Social History Family/Social History Blood Type: Unknown Rubella: unknown RPR/VDRL: Negative GBS Status: Unknown HBsAG: Negative Review of Systems Constitutional: No symptom reported Ears, Nose, & Throat: No symptom reported Eyes: No symptom reported Pulmonary/Respiratory: No symptom reported Cardiovascular: No symptom reported Gastrointestinal: No symptom reported Genitourinary: No symptom reported Musculoskeletal: No symptom reported Skin: No symptom reported Psychiatric: No symptom reported Endocrine: No symptom reported Hemotologic/Lymphatic: No symptom reported OB Admission Exam Physical Exam HEENT: TMs Normal, Fontanelles Normal, Nasal Mucosa Normal, Eyes non-injected, Oropharynx Normal, PERRLA, Moist Membranes, EOMI Heart: Rhythm Normal Lungs: Clear Abdomen: Non tender Extremities: Normal Reflexes: Normal Cervical Dilatation: 7cm Effacement: 100% Station: -1 Membranes: Intact Heart Rate: 130's Accelerations: Accelerations Present Decelerations: No Decelerations Short Term Variability: Present Dike Supervisor Variability: Average (6-25) Contractions on Admission: < 5 Minutes Apart Intensity: Moderate OB Plan Plan Admitting Diagnosis: active Labor iup at 37wks Plan: Expectant Management Other Plan: informed consent obtained Visit Coding OBGYN Date of Service: December 24, 2024 Billing Provider: MAN PEREZ DO VARNISHING UNIT OPERATOR Common Visit Codes: 97666-RVF/OBS SAME DATE (HIGH) VARNISHING UNIT OPERATOR Procedure Codes: 35549-64- NON-STRESS TEST MAN PEREZ DO December 24, 2024 10:58
[2024-12-24] MEDS ORDERED: DERMOPLAST 60ML BOTTLE TOP PRN ×2 (11:00)
[2024-12-24] MEDS ORDERED: LACT. RINGERS/OXYTOCIN 20UNITS 500 ML IV ONE (11:00)
[2024-12-24] MEDS ORDERED: WITCH HAZEL-GLYCERIN PAD TOP PRN (11:00)
[2024-12-24] MEDS ORDERED: LACTATED RINGER'S 1,000 ML IV SCH (11:00)
[2024-12-24] MEDS ORDERED: LIDOCAINE 2%HCL (LOCAL ANESTH.) INJ 20ML MDV IJ PRN ×2 (11:00)
[2024-12-24] MEDS ORDERED: BUTORPHANOL TARTRATE 2 MG/1 ML VIAL IV PRN ×4 (11:00)
[2024-12-24] MEDS ORDERED: PENICILLIN G POT 5MIL/D5 50ML 50 ML IV ONE ×2 (11:00)
[2024-12-24] MEDS ORDERED: PHISODERM TOP SOLN 240ML BTL TOP PRN (11:00)
[2024-12-24] MEDS: LIDOCAINE 2%HCL (LOCAL ANESTH.) INJ 20ML MDV ONE (11:12)
[2024-12-24] MEDS: PENICILLIN G POT 5MIL/D5 50ML 50 ML IV ONE ×2 (11:12→12:05)
[2024-12-24 11:23] LABS: Basophils # (auto) 0 10 ^3/uL (0-0.2); Basophils % (auto) 0.4 % (0.0-2.0); Eosinophils # (auto) 0.1 10 ^3/uL (0-0.8); Eosinophils % (auto) 0.9 % (0.0-7.0); Hematocrit 37.2 % (36.0-46.0); Lymphocytes # (auto) 2.3 10 ^3/uL (0.4-5.4); Lymphocytes % (auto) 19.6 % (10.0-50.0); Mean Corpuscular Hemoglobin 25.5 pg (28.0-32.0); Mean Corpuscular Hgb Conc. 32.3 g/dL (32.0-36.0); Mean Corpuscular Volume 78.8 fL (80.0-100.0); Monocytes # (auto) 0.6 10 ^3/uL (0-1.3); Monocytes % (auto) 5.5 % (0.0-12.0); Neutrophils # (auto) 8.5 10 ^3/uL (1.6-8.6); Neutrophils % (auto) 73.6 % (37.0-80.0); Nucleated Red Blood Cells % 0.2 %; Platelet Count (auto) 278 10^3/uL (140-450); Red Blood Cells 4.72 10^6/uL (4.0-5.20); Red Cell Distribution Width 16.8 % (11.8-14.3); White Blood Cell 11.5 10^3/uL (4.4-10.8)
[2024-12-24 11:38] LABS: Alanine Aminotransferase 15 U/L (7-40); Anion Gap 12 (5-15); Aspartate Aminotransferase 18 U/L (13-40); Bilirubin, Total 0.5 mg/dL (0.2-1.0); Blood Urea Nitrogen 9 mg/dL (9-23); Glucose 101 mg/dL (74-106); Potassium 3.9 mmol/L (3.5-5.1); Sodium 138 mmol/L (136-145); Total Protein 6.9 g/dL (5.7-8.2)
[2024-12-24 11:39] LABS: Alkaline Phosphatase 119 U/L (46-116); Carbon Dioxide 19 mmol/L (20-31); Chloride 107 mmol/L (98-107); INR 0.92 (0.9-1.15); Partial Thromboplastin Time 28.8 SEC (24.5-34.5); Prothrombin Time 9.8 sec (9.3-11.8)
[2024-12-24] MEDS: LACTATED RINGER'S 1,000 ML IV SCH (12:04)
[2024-12-24] MEDS: ROPIVACAINE HCL 200 ML ONE (12:13)
[2024-12-24] MEDS ORDERED: NALOXONE HCL 0.4 MG/ML VIAL IV ONE (12:15)
[2024-12-24] MEDS ORDERED: LACTATED RINGER'S 500 ML IV ONE (12:15)
[2024-12-24] MEDS ORDERED: ePHEDrine SULFATE 50 MG/ML AMP IV ONE (12:15)
[2024-12-24] MEDS ORDERED: LACTATED RINGER'S 1,000 ML IV ONE (12:15)
--- NOTE | 2024-12-24 12:33 | DVHPN2 ---
Chief Complaints Patient reports: No new complaints Nursing reports: No new complaints Objective Medications Current Medications Medications (Trade) Dose Ordered Sig/Geoffrey Route PRN Reason Start Time Stop Time Status Last Admin Benzocaine (Dermoplast) 1 applic PRN PRN TOP PERINEAL AREA DISCOMFORT 12/24/24 11:00 Benzocaine (Dermoplast) 1 applic PRN PRN TOP PERINEAL AREA DISCOMFORT 12/24/24 11:00 Cancel Butorphanol Tartrate (Stadol Injection) 1 mg Q4HPRN PRN IV MODERATE PAIN (4-6 PAIN SCALE) 12/24/24 11:00 Butorphanol Tartrate (Stadol Injection) 1 mg Q4HPRN PRN IV MODERATE PAIN (4-6 PAIN SCALE) 12/24/24 11:00 Cancel Butorphanol Tartrate (Stadol Injection) 2 mg Q4HPRN PRN IV SEVERE PAIN (7-10 PAIN SCALE) 12/24/24 11:00 Butorphanol Tartrate (Stadol Injection) 2 mg Q4HPRN PRN IV SEVERE PAIN (7-10 PAIN SCALE) 12/24/24 11:00 Cancel Lactated Ringer's 1,000 ml @ 125 mls/hr Q8H IV 12/24/24 11:00 12/24/24 12:04 Lactated Ringer's 1,000 ml @ 125 mls/hr Q8H IV 12/24/24 11:00 Cancel Lidocaine HCl (Xylocaine) 20 ml ONCE PRN IJ PERINEAL AREA DISCOMFORT 12/24/24 11:00 Lidocaine HCl (Xylocaine) 20 ml ONCE PRN IJ PERINEAL AREA DISCOMFORT 12/24/24 11:00 Cancel Penicillin G Potassium [id number] units/Dextrose 50 ml @ 100 mls/hr Q4H IV 12/24/24 15:00 Penicillin G Potassium [id number] units/Dextrose 50 ml @ 100 mls/hr Q4H IV 12/24/24 15:00 Cancel Sodium Lauryl Sulfate (Phisoderm) 240 ml PRN PRN TOP PERINEAL AREA DISCOMFORT 12/24/24 11:00 Sodium Lauryl Sulfate (Phisoderm) 240 ml PRN PRN TOP PERINEAL AREA DISCOMFORT 12/24/24 11:00 Cancel Witch Cheryl (Tucks) 1 pad PRN PRN TOP PERINEAL AREA DISCOMFORT 12/24/24 11:00 Witch Cheryl (Zelalem) 1 pad PRN PRN TOP PERINEAL AREA DISCOMFORT 12/24/24 11:00 Cancel Others ve- epidural in progress unable to check Studies Laboratory Tests 12/24/24 11:03 Test 12/24/24 11:03 Range/Units Serum Glucose 101 74-106 mg/dL Ass/Plan Assessment active labor Plan expect vag del Visit Coding OBGYN Date of Service: December 24, 2024 Billing Provider: MAN PEREZ DO BILINGUAL TEACHER ASSISTANT Common Visit Codes: [id number] INP/OBS CARE (HIGH) BILINGUAL TEACHER ASSISTANT Procedure Codes: 54286-20- NON-STRESS TEST MAN PEREZ DO December 24, 2024 12:33
[2024-12-24] MEDS: LACT. RINGERS/OXYTOCIN 20UNITS 1,000 ML IV ONE (14:07)
[2024-12-24] MEDS ORDERED: PENICILLIN G POTASSIUM 2,500,000 UNITS in D5W 5% 50 ML IV SCH (15:00)
[2024-12-24] MEDS: METHYLERGONOVINE MALEATE 0.2 MG/ML AMP IM ONE (15:14)
--- NOTE | 2024-12-24 16:12 | LDN2 ---
Labor and Delivery Note Date 12/24/24 Age 29 2 Para 2 EDC 5-28 EGA 37wks Diagnosis labor,morvid obesity Vaginal Delivery: VTX Vacuum Assisted: No Placenta: Spontaneous Sex: Female Apgars 8-9 Nuchal Cord Transected: No Amniotic Fluid: Clear Anesthesia epidural Episiotomy: No Extension: Yes (1st deg perineal lac) Repaired with 2-0 chromic EBL 300ml Labs Blood Bank 12/24/24 11:03: Blood Type A POSITIVE Complications none Conditions stable Comments/Significant Med Sonu spec exam no cxal lac Visit Coding OBGYN Date of Service: December 24, 2024 Billing Provider: MAN PEREZ DO LOT ATTENDANT Common Visit Codes: 28192-[id number] INP/OBS CARE (HIGH) LOT ATTENDANT Procedure Codes: 71535-EVC DELIVERY ONLY MAN PEREZ DO December 24, 2024 16:12
[2024-12-24] MEDS ORDERED: ACETAMINOPHEN 325 MG TAB PO PRN (16:30)
[2024-12-24] MEDS: LACT. RINGERS/OXYTOCIN 20UNITS 500 ML IV ONE (19:00)
[2024-12-24 19:30] VITALS: BP 115/70; PULSE 92; RESP 16; TEMP 98.1; O2SAT 97
[2024-12-24 20:44] LABS: Urine Bacteria None Seen /hpf (None Seen)
[2024-12-24] MEDS: IBUPROFEN 600 MG TAB PO PRN (20:48)
[2024-12-24 20:55] LABS: Urine Blood 3+ /uL (Negative); Urine Clarity Turbid (Clear); Urine Color Light-Red (Yellow); Urine Protein, UAD 1+ (Negative); Urine Specific Gravity 1.012 (1.001-1.035); Urine Squamous Epithelial Cell FEW /hpf (<5); Urine Urobilinogen Normal (Negative); Urine WBC 361 /HPF (0-5); Urine WBC Clumps PRESENT /hpf (None Seen)
[2024-12-24 21:27] LABS: Amphetamine Screen, Urine Neg (NEGATIVE); Barbiturate Scree,Urine Neg (NEGATIVE); Benzodiazephine Screen, Urine Neg (NEGATIVE); Cannabinoid Screen, Urine Neg (NEGATIVE); Cocaine Screen, Urine Neg (NEGATIVE); Opiate Scree,Urine Neg (NEGATIVE); Phencyclidine Screen, Urine Neg (NEGATIVE)
[2024-12-24] MEDS: DOCUSATE SOD 100 MG CAP PO SCH (22:00)
[2024-12-24 23:00] VITALS: BP 107/68; PULSE 93; RESP 15; TEMP 98.6; O2SAT 96
[2024-12-25 03:00] VITALS: BP 101/62; PULSE 82; RESP 16; TEMP 98; O2SAT 96
--- NOTE | 2024-12-25 03:43 | DVHPN2 ---
Progress Note Date Seen: December 25, 2024 Subjective S: Lochia minimal Tolerating regular diet well. Ambulating and voiding well w/o feeling lightheaded or dizzy. Passing flatus but no BM yet. Breast feeding. Contraceptive plan: Desires and requests to be discharged home today vital signs Vital Sign Date Time Temp Pulse Resp B/P (MAP) Pulse Ox O2 Delivery O2 Flow Rate FiO2 12/24/24 23:00 98.6 93 15 107/68 (81) 96 98.6 12/24/24 19:30 Room Air Total Intake and Output 12/24/24 12/24/24 12/25/24 15:00 23:00 07:00 Output Total 400 ml Balance -400 ml medications Current Medications Medications Dose Ordered Sig/Geoffrey Route Start Time Stop Time Status Last Admin Dose Admin Lactated Ringer's 1,000 ml @ 125 mls/hr Q8H IV 12/24/24 11:00 Cancel Penicillin G Potassium [id number] units/Dextrose 50 ml @ 100 mls/hr Q4H IV 12/24/24 15:00 Cancel Witch Cheryl 1 pad PRN PRN TOP 12/24/24 11:00 Cancel Sodium Lauryl Sulfate 240 ml PRN PRN TOP 12/24/24 11:00 Cancel Benzocaine 1 applic PRN PRN TOP 12/24/24 11:00 Cancel Butorphanol Tartrate 1 mg Q4HPRN PRN IV 12/24/24 11:00 Cancel Butorphanol Tartrate 2 mg Q4HPRN PRN IV 12/24/24 11:00 Cancel Lidocaine HCl 20 ml ONCE PRN IJ 12/24/24 11:00 Cancel Witch Cheryl 1 pad PRN PRN TOP 12/24/24 11:00 Sodium Lauryl Sulfate 240 ml PRN PRN TOP 12/24/24 11:00 Ibuprofen 600 mg Q6HP PRN PO 12/24/24 16:30 12/24/24 20:48 600 MG Acetaminophen 650 mg Q4HP PRN PO 12/24/24 16:30 Docusate Sodium 200 mg HS PO 12/24/24 22:00 Benzocaine 1 applic PRN PRN TOP 12/24/24 19:00 laboratory and microbiology Laboratory Tests 12/24/24 11:03 Test 12/24/24 11:03 Range/Units Serum Glucose 101 74-106 mg/dL Objective O: A&O x3 NAD. Afebrile, VSS Chest: heart and lung sounds normal. Breasts: Nipples intact w/o cracks or soreness Abdomen: normal BS, soft, non-tender, no rebound or guarding, fundus firm @ U- 1, lochia minimal Perineum:- no edema, or erythema, laceration site with sutures intact, edges in good approximation. Extremities: no edema or tenderness Lochia - minimal Assessment/Plan 29yo now ppd#1 s/p doing well. Blood Type: A Rh: Positive Breast feeding Rubella Immune Pain control with oral medications Bowel regimen: Increase fluid intake and fiber in diet, Laxative PRN PP BCM Plan: undecided Discharge plan: May discharge home later today if condition remains stable Plan discussed with: Patient Visit Coding OBGYN Date of Service: December 25, 2024 Billing Provider: ROQUE DUQUE CNM MARKETING ACCOUNT MANAGER Common Visit Codes: [id number] INP/OBS CARE(HIGH) ROQUE DUQUE CNM December 25, 2024 03:43
[2024-12-25] MEDS: DERMOPLAST 60ML BOTTLE TOP PRN (05:00)
[2024-12-25] MEDS: WITCH HAZEL-GLYCERIN PAD TOP PRN (05:00)
[2024-12-25] MEDS: PHISODERM TOP SOLN 240ML BTL TOP PRN (05:00)
[2024-12-25 07:12] VITALS: BP 98/60; PULSE 80; RESP 16; TEMP 98.2; O2SAT 97
[2024-12-25 11:00] VITALS: BP 109/68; PULSE 92; RESP 17; TEMP 98.1; O2SAT 97
[2024-12-25 15:00] VITALS: BP 100/68; PULSE 84; RESP 16; TEMP 98; O2SAT 97
--- NOTE | 2024-12-25 17:39 | DVHDS2 ---
Obstetrics Discharge Summary Obstetrics Discharge Summary Date of Admission: December 24, 2024 Date of Discharge: December 25, 2024 Reason For Admission: Onset of Labor Procedures: NST Intrapartum Procedures: Spontaneous vaginal deliv Procedures: None Operative Complicat: Laceration (Perineal) Discharge Diagnosis: Delivery Discharge Information: Activity (Other), Diet, Medications (None), Instructions (Routine), Discharge to (Home), Discarge date (12-25) Visit Coding OBGYN Date of Service: December 25, 2024 Billing Provider: MAN PEREZ DO LITIGATION PARTNER Common Visit Codes: 73545-MLP/OBS DISCH DAY >30MIN MAN PEREZ DO December 25, 2024 17:39
--- NOTE | 2024-12-25 17:40 | DVHPN2 ---
Chief Complaints Patient reports: No new complaints Nursing reports: No new complaints Objective Vitals Vital Signs Date Time Temp Pulse Resp B/P (MAP) Pulse Ox O2 Delivery O2 Flow Rate FiO2 12/25/24 15:00 98.0 84 16 100/68 (79) 97 98.0 12/25/24 07:11 Room Air Medications Current Medications Medications (Trade) Dose Ordered Sig/Geoffrey Route PRN Reason Start Time Stop Time Status Last Admin Benzocaine (Dermoplast) 1 applic PRN PRN TOP PERINEAL AREA DISCOMFORT 12/24/24 19:00 12/25/24 05:00 Docusate Sodium (Colace Capsule) 200 mg HS PO 12/24/24 22:00 General: Normal Lungs: Normal Cardiovascular: Normal Musculoskeletal: Normal Extremities: Normal Studies Laboratory Tests 12/24/24 11:03 Test 12/24/24 11:03 Range/Units Serum Glucose 101 74-106 mg/dL Ass/Plan Assessment S/P Plan DC HOME FU IN 2WKS Visit Coding OBGYN Date of Service: December 25, 2024 Billing Provider: MAN PEREZ DO MINE PATROL Common Visit Codes: [id number] INP/OBS CARE(HIGH), 03442-ZIM/OBS DISCH DAY >30MIN MAN PEREZ DO December 25, 2024 17:40
== END 2024-12-25 16:45 | disposition home or self-care (01) | DRG 560 ==
LOC: LDRP 10:45
PROVIDERS: ADMIT Obstetrics & Gynecology; ATTEND Obstetrics & Gynecology
PROC: 10E0XZZ Delivery of Products of Conception, External Approach (ICD-10-PCS; principal; 2024-12-24)
PROC: 0HQ9XZZ Repair Perineum Skin, External Approach (ICD-10-PCS; 2024-12-24)
PROC: 3E0R3BZ Introduction of Anesthetic Agent into Spinal Canal, Percutaneous Approach (ICD-10-PCS; 2024-12-24)
PROC: 00HU33Z Insertion of Infusion Device into Spinal Canal, Percutaneous Approach (ICD-10-PCS; 2024-12-24)
DX: O60.14X0 Preterm labor third trimester with preterm delivery third trimester, not applicable or unspecified (principal); Z37.0 Single live birth; E66.01 Morbid (severe) obesity due to excess calories; O99.214 Obesity complicating childbirth; O70.0 First degree perineal laceration during delivery; Z3A.37 37 weeks gestation of pregnancy; Z91.040 Latex allergy status
CPT/HCPCS: 36415; 59409; 62282; 80053; 80307; 81001; 81002; 85025; 85610; 85730; 86780; 86803; 86850; 86900; 86901; 94760; 96360; 96361; 96365; 96366; 96372; G0378; J2540; J2590; J7060